=== PATIENT | female | born 1970 | race Caucasian/White ===

== ENCOUNTER 2018-01-01 18:27 | Emergency (ER) | payer OTHER, SELFPAY ==
[2018-01-01 18:27] VITALS: BP 116/68; PULSE 126; RESP 20; TEMP 37.4; O2SAT 97; BMI 23.6
[2018-01-01] MEDS: 0.9% Normal Saline 1,000 ML 999 ML IV (18:40)
[2018-01-01 18:44] VITALS: BP 125/78; PULSE 101; RESP 14; O2SAT 95
[2018-01-01 18:54] VITALS: TEMP 38.7
--- NOTE | 2018-01-01 19:26 | CT_ITS ---
STUDY: CT BRAIN WITHOUT CONTRAST REASON FOR EXAM: Female, 47 years old. Headache. Migraines. RADIATION DOSAGE (If Supplied By Facility): CTDIvol = ( 44.99 ) mGy, DLP = ( 779.24 ) mGycm TECHNIQUE: Transaxial CT imaging of the brain was performed without administration of intravenous contrast material. Individualized dose optimization techniques were used for this CT. COMPARISON: None. FINDINGS: Normal soft tissue structures. Normal calvarium. Normal size ventricles and extra-axial spaces for the patient's age. Normal white matter tracts of the cerebral hemispheres. Normal basal ganglia and thalami. Normal brainstem. Normal cerebellum. There is no intracranial hemorrhage. There are no findings of an acute ischemic infarction. Normal visualized paranasal sinuses. CT/Brain/Head without Contrast IMPRESSION: Normal unenhanced CT scan of the brain. Electronically Signed: Britt Cheney MD at 20:19 EDT Tel , Service support ,
[2018-01-01] MEDS: DiphenhydrAMINE 50 MG/ML Syringe 25 MG IV (19:34)
[2018-01-01] MEDS: Ketorolac 30 MG/ML Syringe IV (19:35)
[2018-01-01] MEDS: proCHLORPERazine 10 MG/2 ML Vial IV (19:37)
[2018-01-01 19:38] LABS: Absolute Lymphocyte Count 0.57 X10^3/ul (0.83-4.51); Absolute Neutrophil Count 10.2 X10^3/uL (2.0-7.7); Basophil# 0.02 X10^3/uL; Basophil% 0.2 % (0-1); Hematocrit 41.4 % (37-47); Hemoglobin 13.8 g/dl (12.0-15.0); Lymphocyte # 0.57 X10^3/ul (4.0); Lymphocyte % 4.9 % (19-41); Mean Corp Hgb Conc 33.3 g/gl (32-36); Mean Corpuscular Hgb 30.7 pg (27.0-32.0); Mean Corpuscular Volume 92.2 fL (81-99); Mean Platelet Vol. 9.5 fl (6.2-12.0); Monocyte% 7.7 % (0-10); Neutrophil # 10.23 X10^3/uL (2.7-7.7); Neutrophil % 87.1 % (47-70); Platelet Count 233 K/mm3 (150-450); RBC Distribution Width CV 13.6 % (11.6-14.6); Red Blood Count 4.49 M/mm3 (4.2-5.4); White Blood Count 11.7 K/mm3 (4.4-11.0)
[2018-01-01 19:39] LABS: Prothrombin Time (Protime)PT. 13.6 SECONDS (11.7-14.9)
[2018-01-01 19:42] VITALS: BP 140/91; PULSE 93; RESP 20; O2SAT 95
[2018-01-01 19:42] LABS: Differential Indicated SCAN CRITERIA MET; POSITIVE COUNT NO; POSITIVE DIFFERENTIAL YES; POSITIVE MORPHOLOGY NO
[2018-01-01 19:47] LABS: BUN 9 mg/dL (7-18); Creatinine, Serum 0.89 mg/dL (0.55-1.02); Estimated Creatinine Clearance 77.98 ml/min; Glucose 141 mg/dL (74-106)
[2018-01-01 19:48] LABS: Anion Gap 11 (5-15); BUN/Creat Ratio 10.1 RATIO (10-20); Calcium,Total 8.6 mg/dL (8.5-10.1); Chloride 103 mmol/L (98-107); EST Glomerular Filtration Rate 72 mL/min (>60); Est Glom Filt Rate - Afr Amer 87 mL/min (>60); Potassium 3.5 mmol/L (3.5-5.1); Sodium Level 136 mmol/L (136-145)
[2018-01-01 20:08] LABS: Differential Comment SCANNED
[2018-01-01 21:13] VITALS: BP 122/81; PULSE 89; RESP 19; O2SAT 95
--- NOTE | 2018-01-01 21:20 | ED.VISSUMM ---
- ER Visit Summary Date of Service: 01/01/18 Chief Complaint: Headache History of Present Illness: The patient is a 47 F who presents with a headache. She does have a history of headaches. She has a history of migraines. She states that her current headache worsened over the course of a couple of hours. This headache is typical in character of pain and location to previous headaches. It is not the worst headache she has had. However she is concerned because she had fever. Family reports that thermometer read 106 at home but they are not sure if this is accurate. She denies any URI-like illness such as congestion rhinorrhea sore throat. She denies chest pain shortness of breath nausea vomiting diarrhea. She denies any medical history. Physical Examination: Temperature 101.6, heart rate 101 Moist mucous membranes No focal or lateralizing neurological deficits normal strength normal sensation Neck is supple no meningismus no nuchal rigidity negative Kernig's and Brudzinski's signs Heart is regular rhythm slightly tachycardic Lungs are clear Test Results: Labs notable for white blood cell count of 11.7. Glucose of 141. INR normal. Rapid influenza negative. CT of the head is normal. Emergency Department Course and Treatment: Workup as above is unremarkable. I discussed with the patient and family at bedside that my clinical suspicion for bacterial meningitis is very low given her overall well appearance and lack of meningeal signs or nuchal rigidity. I did explain that viral meningitis is still a consideration but that there is usually no specific treatmen but would likely place the patient in observation. We had a long discussion regarding risks and benefits of lumbar puncture. Patient refused lumbar puncture. We discussed alternatives including monitoring at home. Family is able to watch her at home as well. They do understand to return for new or worsening symptoms and were instructed on specific signs and symptoms to monitor for. She was treated here with IV fluids Toradol Compazine and Benadryl with significant improvement of symptoms. She would like to go home. Patient discharged home in good condition. Treatment Plan: [] Disposition: Discharge Impression: Fever Headache This note was generated with [employer] dictation software. It may contain incorrect words, spelling, and punctuation that were not noted in review of the chart prior to signing ED Disposition - Plan for ED Patient: Chief Complaint: Fever Referrals: Lorenzo Rodriguez III, MD [Primary Care Provider] -
--- NOTE | 2018-01-01 21:23 | ED.DEP ---
ED Disposition - Plan for ED Patient: Chief Complaint: Fever Instructions: ED Cephalgia Unspecified Referrals: Lorenzo Rodriguez III, MD [Primary Care Provider] -
[2018-01-01 21:31] VITALS: BP 116/71; PULSE 89; RESP 18; O2SAT 96
== END 2018-01-01 21:32 | disposition home or self-care (01) ==
PROVIDERS: Emergency Provider Emergency Medicine; Family Provider Family Medicine; PCP Family Medicine
DX: R51 Headache (principal); R50.9 Fever, unspecified
CPT/HCPCS: 70450; 80048; 85025; 85610; 87804; 96361; 96374; 96375; 99284; J7030; A4216

== ENCOUNTER 2018-01-03 14:29 | Emergency (ER) | payer OTHER, SELFPAY ==
[2018-01-03 14:29] VITALS: BP 163/63; PULSE 107; RESP 20; TEMP 36.7; O2SAT 98; BMI 23.6
--- NOTE | 2018-01-03 15:02 | ED.VISSUMM ---
- ER Visit Summary Date of Service: 01/03/18 Chief Complaint: Headache and fever History of Present Illness: The patient is a [address] Lorenzo Rodriguez III. She reports that she has a headache and fever that began 3 days ago. She reports that the headache has come on gradually. States that it improves after Excedrin, but then returns. She states that she went to the chiropractor today and had a nerve zully in her neck. The headache is now a sharp throbbing pain over her temples and forehead. It is 9 out of 10 in severity. She does have a history of similar headaches. Patient reports that she has had a fever to 101.8?. She denies any sore throat or cough. No ear pain or congestion. No abdominal pain. She has been nauseated. However, this is not unusual with her headache. No vomiting or diarrhea. No dysuria frequency. Last menstrual period was 2 weeks ago. No rash. No numbness or weakness. Physical Examination: Vitals: Stable. Afebrile. General: Well-nourished and well-developed. Head: Normocephalic atraumatic. Neck: Supple, no lymphadenopathy. No JVD. Nontender. Cardiovascular: Regular rate and rhythm. No murmurs. Respiratory: No respiratory distress. Clear to auscultation bilaterally. Abdominal: Soft, nontender, nondistended, normal bowel sounds. No guarding, rebound, or peritoneal signs. Back: Nontender. Extremities: Nontender, no edema. Skin: Normal color, no rash. Neurologic: Alert and oriented ?3. Cranial nerves II through XII are intact. Normal strength and sensation. Psych: Normal affect. Test Results: Urinalysis shows leukocytes, blood, ketones, 2+ bacteria. No white or red blood cells. Patient denies dysuria. I do not believe this is the source of her fever. Emergency Department Course and Treatment: Patient had an IV placed. She was given a liter normal saline. She was given Benadryl, Reglan, Toradol, Depakote, and Solu-Medrol IV. Had a prolonged discussion with the patient and her about the differential of fever and headache. She has refused a lumbar puncture. Treatment Plan: Patient will be discharged symptomatic care. Push fluids. Alternate Tylenol and ibuprofen. She reports that she has an appointment with Dr. Lorenzo Rodriguez iii tomorrow. She is instructed to keep this appointment. Return to the emergency department for any worsening symptoms. Disposition: To home in improved and stable condition. Impression: 1. Cephalgia. 2. Fever, uncertain cause. This note was generated with [employer] dictation software. It may contain incorrect words, spelling, and punctuation that were not noted in review of the chart prior to signing ED Disposition - Plan for ED Patient: Chief Complaint: Fever Instructions: ED Fever Unconf Cause, ED Cephalgia Unspecified Referrals: Lorenzo Rodriguez III, MD [Primary Care Provider] -
[2018-01-03] MEDS: 0.9% Normal Saline 1,000 ML 999 ML IV (15:30)
[2018-01-03] MEDS: DiphenhydrAMINE 50 MG/ML Syringe IV (15:31)
[2018-01-03] MEDS: Ketorolac 30 MG/ML Syringe IV (15:31)
[2018-01-03] MEDS: Metoclopramide 10 MG/2 ML Vial IV (15:31)
[2018-01-03 16:29] VITALS: BP 147/80; PULSE 69; RESP 18; O2SAT 99
[2018-01-03] MEDS: Acetaminophen 500 MG Tablet 1000 MG PO (17:07)
[2018-01-03 17:48] LABS: Color, Urine Yellow (Yellow); Glucose, Dipstick Normal (Normal); Ketone-Dipstick 5 mg/dl (Negative); Leukocyte Esterase-Dipstick 25 /ul (Negative); Nitrite-Dipstick Negative (Negative); Occult Blood-Urine 250 /ul (Negative); Protein-Dipstick 100 mg/dl (Negative); Urine Bilirubin Dipstick Negative (Negative); Urine Clarity Clear (Clear); Urine Urobilinogen Normal (Normal); Urine pH 6.5 (5.0 - 8.0)
[2018-01-03 18:06] LABS: Bacteria 2+ /hpf (None Seen); Mucous, Urine 2+ /hpf (<or=2+); Red Blood Cells-Urine 0-5 SEEN /hpf (0-5); Squamous Epithelial Cells - UA 0-5 SEEN /hpf (5-10); White Blood Cells 0-5 SEEN /hpf (0-5)
[2018-01-03 18:58] VITALS: BP 117/89; PULSE 63; RESP 18; O2SAT 97
== END 2018-01-03 19:00 | disposition home or self-care (01) ==
PROVIDERS: Emergency Provider Emergency Medicine; Family Provider Family Medicine; PCP Family Medicine
DX: R51 Headache (principal); R50.9 Fever, unspecified
CPT/HCPCS: 81001; 96365; 96366; 96367; 96375; 99284; J7030; J7050; A4216; J2930

== ENCOUNTER 2021-04-29 15:06 | Outpatient (CLI) | payer OTHER, SELFPAY ==
[2021-04-29 16:05] LABS: Absolute Neutrophil Count 4.3 X10^3/uL (2.0-7.7); Basophil# 0.04 X10^3/uL; Basophil% 0.6 % (0-1); Eosinophil# 0.16 X10^3/uL; Eosinophils% 2.3 % (0-5); Lymphocyte % 27.3 % (19-41); Mean Corp Hgb Conc 33.3 g/dL (32-36); Mean Corpuscular Volume 93.1 fL (81-99); Mean Platelet Vol. 9.7 fl (6.2-12.0); Monocyte# 0.57 X10^3/uL; Monocyte% 8.2 % (0-10); NRBC Flagged by Analyzer 0 % (0-5); Neutrophil # 4.26 X10^3/uL (2.7-7.7); Neutrophil % 61.3 % (47-70); Platelet Count 311 K/mm3 (150-450); RBC Distribution Width CV 13.4 % (11.6-14.6); RBC Distribution Width SD 45.7 fl (35.1-43.9); Red Blood Count 4.51 M/mm3 (4.2-5.4)
[2021-04-29 16:33] LABS: AST(SGOT) 13 U/L (15-37); Alanine Aminotransfer ALT/SGPT 32 U/L (13-56); Albumin, Serum 3.8 g/dL (3.2-5.0); Alkaline Phosphatase 54 U/L (45-117); Anion Gap 9 (5-15); BUN 16 mg/dL (7-18); BUN/Creat Ratio 20.1 RATIO (10-20); Chloride 104 mmol/L (98-107); Cholesterol 272 mg/dL (200); EST Glomerular Filtration Rate 80 mL/min (>60); Est Glom Filt Rate - Afr Amer 97 mL/min (>60); Globulin 3.7 g/dL (2.2-4.2); Glucose 105 mg/dL (74-106); High Density Lipoprotein 60 mg/dL; Potassium 3.9 mmol/L (3.5-5.1); Protein, Total 7.5 g/dL (6.4-8.2); Sodium Level 141 mmol/L (136-145); Thyroid Stim Hormone (TSH) 0.94 uIU/mL (0.358-3.74); Triglycerides 335 mg/dL; Very Low Density Lipoprotein 67 mg/dL (5-40)
[2021-04-29 16:41] LABS: Vitamin D,25 Hydroxy 22.5 ng/mL
== END 2021-04-29 23:59 | disposition short-term general hospital (02) ==
LOC: POLAB3 15:07
PROVIDERS: PCP Family Medicine Geriatric Medicine; Visit Provider Family Medicine Geriatric Medicine
DX: E78.5 Hyperlipidemia, unspecified (principal); E55.9 Vitamin D deficiency, unspecified; R53.83 Other fatigue
CPT/HCPCS: 36415; 80053; 80061; 82306; 84443; 85025

== ENCOUNTER 2021-04-30 08:55 | Outpatient (CLI) | payer OTHER, SELFPAY | END 2021-04-30 23:59 | disposition short-term general hospital (02) | LOC: PSN 08:57 | PROVIDERS: PCP Family Medicine Geriatric Medicine; Referring Provider Family Medicine Geriatric Medicine; Visit Provider Family Medicine Geriatric Medicine | DX: R68.83 Chills (without fever) (principal) | CPT/HCPCS: 87635; 87804; 87807; U0003; U0005 ==

== ENCOUNTER 2021-06-09 07:03 | Outpatient (CLI) | payer OTHER, SELFPAY ==
--- NOTE | 2021-06-09 13:46 | PFT ---
INTRODUCTION: The patient is a 51-year-old female that presents for pulmonary function studies secondary to a diagnosis of shortness of breath. Respiratory therapy reported good patient effort. Bronchodilators were used during testing. INTERPRETATION: Forced expiration spirometry demonstrates no evidence of a large airways obstructive ventilatory defect. There was no significant response to aerosolized bronchodilators. Spirograms are of good quality and plateau normally. Body plethysmography was performed and reveals lung volumes to be within normal limits. Diffusing capacity by single breath CO is also within normal limits. IMPRESSION: Grossly normal pulmonary function studies.
== END 2021-06-09 23:59 | disposition home or self-care (01) ==
PROVIDERS: PCP Family Medicine Geriatric Medicine; Referring Provider Family Medicine Geriatric Medicine; Visit Provider Family Medicine Geriatric Medicine
DX: R06.02 Shortness of breath (principal)
CPT/HCPCS: 94060; 94726; 94729

== ENCOUNTER 2021-07-08 13:51 | Outpatient (CLI) | payer OTHER, SELFPAY ==
--- NOTE | 2021-07-08 13:56 | ECHOD_ITS ---
Reason For Study: SOB Procedure This was a 2D Doppler, Color Flow transthoracic echocardiogram. Exam performed in department. Left Ventricle Normal LV size. Left ventricular systolic function is normal. The estimated ejection fraction is 65 %. No evidence for diastolic dysfunction. No regional wall motion abnormalities noted. Right Ventricle Normal RV size. Normal systolic function. Atria Normal left atrium. Normal right atrium. No doppler evidence for ASD. Mitral Valve There is no mitral annular calcification. Normal mitral valve. Mild (1+) mitral valve insufficiency. Tricuspid Valve Normal tricuspid valve. Mild to moderate (1-2+) tricuspid valve insufficiency. Right ventricular systolic pressure estimated to be 31 mmHg. Aortic Valve Trisinus/trileaflet aortic valve. Mild diffuse aortic valve thickening. Pulmonic Valve The pulmonic valve is not well visualized. Mild (1+) pulmonic valve insufficiency. Great Vessels Normal sized aortic root. Pericardium/Pleural No pericardial effusion. MMode/2D Measurements & Calculations LVIDd: 4.2 cm IVSd: 1.00 cm Ao root diam: 3.3 cm LVIDs: 2.9 cm LVPWd: 0.99 cm RVDd: 4.1 cm FS: 30.3 % LAV(MOD-bp): 47.4 ml LVAd ap4: 33.1 cm2 SV(MOD-sp4): 71.9 ml LAV(MOD-bp) Indexed: 25.6 ml/m2 LVLd ap4: 8.3 cm LAV(MOD-sp2): 47.8 ml EDV(MOD-sp4): 106.1 ml LAV(MOD-sp4): 45.8 ml EDV(sp4-el): 111.9 ml LVAs ap4: 16.5 cm2 LVLs ap4: 6.6 cm ESV(MOD-sp4): 34.2 ml ESV(sp4-el): 35.4 ml EF(MOD-sp4): 67.8 % EF(sp4-el): 68.3 % SV(sp4-el): 76.5 ml LA A4 area: 17.8 cm2 LA dimension(2D): 3.5 cm RA A4 area: 15.4 cm2 Time Measurements MV dec time: 0.22 sec Doppler Measurements & Calculations MV E max denzel: 73.4 cm/sec Lat Peak E' Denzel: 12.9 cm/sec Med Peak E' Denzel: 7.9 cm/sec MV A max denzel: 95.0 cm/sec E/E' lat: 5.7 E/E' med: 9.3 MV E/A: 0.77 Ao V2 max: 168.6 cm/sec LV V1 max: 159.2 cm/sec PA V2 max: 90.9 cm/sec Ao max P.4 mmHg LV V1 max P.1 mmHg TR max denzel: 264.4 cm/sec TR max P.0 mmHg ECHO/Echo Complete Interpretation Summary Left ventricular systolic function is normal. The estimated ejection fraction is 65 %. Mild (1+) mitral valve insufficiency. Mild to moderate (1-2+) tricuspid valve insufficiency. Mild diffuse aortic valve thickening. Mild (1+) pulmonic valve insufficiency. Right ventricular systolic pressure estimated to be 31 mmHg. No evidence for diastolic dysfunction. Ordering Physician: Tye Espino Referring Physician: Tye Espino Chi Performed By: Marsha Swann, BILL
== END 2021-07-08 23:59 | disposition home or self-care (01) ==
LOC: CVS 13:54
PROVIDERS: PCP Family Medicine Geriatric Medicine; Referring Provider Family Medicine Geriatric Medicine; Visit Provider Family Medicine Geriatric Medicine
DX: R06.02 Shortness of breath (principal)
CPT/HCPCS: 93306

== ENCOUNTER → 2021-08-26 | Outpatient (CLI) | payer OTHER, SELFPAY ==
[2021-09-03 19:07] LABS: Lyme IgG P18 Ab Absent (.); Lyme IgG P23 Ab Absent (.); Lyme IgG P28 Ab Absent (.); Lyme IgG P30 Ab Absent (.); Lyme IgG P39 Ab Absent (.); Lyme IgG P41 Ab Absent (.); Lyme IgG P45 Ab Absent (.); Lyme IgG P58 Ab Absent (.); Lyme IgG P66 Ab Absent (.); Lyme IgG P93 Ab Absent (.); Lyme IgM P23 Ab Absent (.); Lyme IgM P39 Ab Absent (.); Lyme IgM P41 Ab Absent (.)
[2021-09-03 19:26] LABS: Lyme IgG WB Interpretation Negative (.); Lyme IgM WB Interpretation Negative (.)
== END | disposition home or self-care (01) ==
LOC: POLAB3 16:08
PROVIDERS: PCP Family Medicine Geriatric Medicine; Visit Provider Family Medicine Geriatric Medicine
DX: T63.481A Toxic effect of venom of other arthropod, accidental (unintentional), initial encounter (principal)
CPT/HCPCS: 36415; 86617

== ENCOUNTER → 2022-04-09 | Outpatient (CLI) | payer OTHER, SELFPAY | END | disposition home or self-care (01) | LOC: PSN 11:47 | PROVIDERS: PCP Family Medicine Geriatric Medicine; Referring Provider Family Medicine Geriatric Medicine; Visit Provider Family Medicine Geriatric Medicine | DX: R68.83 Chills (without fever) (principal) | CPT/HCPCS: 87635; 87804; 87807; C9803; U0003; U0005 ==

== ENCOUNTER 2022-06-25 15:45 | Outpatient (CLI) | payer OTHER, SELFPAY ==
[2022-06-25 17:40] LABS: Absolute Lymphocyte Count 1.81 X10^3/uL (0.83-4.51); Absolute Neutrophil Count 3.8 X10^3/uL (2.0-7.7); Basophil# 0.05 X10^3/uL; Basophil% 0.8 % (0-1); Eosinophil# 0.11 X10^3/uL; Eosinophils% 1.7 % (0-5); Hematocrit 41.5 % (37-47); Hemoglobin 13.6 g/dL (12.0-15.0); Lymphocyte # 1.81 X10^3/ul (0.83-4.51); Lymphocyte % 28.1 % (19-41); Mean Corp Hgb Conc 32.8 g/dL (32-36); Mean Corpuscular Hgb 30.6 pg (27.0-32.0); Mean Corpuscular Volume 93.5 fL (81-99); Mean Platelet Vol. 9.6 fl (6.2-12.0); Monocyte# 0.62 X10^3/uL; Monocyte% 9.6 % (0-10); NRBC Flagged by Analyzer 0 % (0-5); Neutrophil # 3.83 X10^3/uL (2.7-7.7); Neutrophil % 59.6 % (47-70); Platelet Count 334 K/mm3 (150-450); RBC Distribution Width CV 13.7 % (11.6-14.6); Red Blood Count 4.44 M/mm3 (4.2-5.4); White Blood Count 6.4 K/mm3 (4.4-11.0)
[2022-06-25 18:27] LABS: ALB/GLOB Ratio 1.1 RATIO (0.9-2.4); AST(SGOT) 15 U/L (15-37); Alanine Aminotransfer ALT/SGPT 23 U/L (13-56); Albumin, Serum 3.7 g/dL (3.2-5.0); Alkaline Phosphatase 50 U/L (45-117); Anion Gap 7 (5-15); BUN 16 mg/dL (7-18); BUN/Creat Ratio 23.2 RATIO (10-20); Calcium,Total 9.1 mg/dL (8.5-10.1); Chloride 103 mmol/L (98-107); Creatinine, Serum 0.69 mg/dL (0.55-1.02); EST Glomerular Filtration Rate 95 mL/min (>60); Est Glom Filt Rate - Afr Amer 115 mL/min (>60); Globulin 3.4 g/dL (2.2-4.2); Glucose 112 mg/dL (74-106); Potassium 4.1 mmol/L (3.5-5.1); Protein, Total 7.1 g/dL (6.4-8.2); Sodium Level 137 mmol/L (136-145); Thyroid Stim Hormone (TSH) 1.28 uIU/mL (0.358-3.74)
== END 2022-06-25 23:59 | disposition home or self-care (01) ==
PROVIDERS: PCP Family Medicine Geriatric Medicine; Visit Provider Family Medicine Geriatric Medicine
DX: Z00.00 Encounter for general adult medical examination without abnormal findings (principal)
CPT/HCPCS: 36415; 80053; 84443; 85025

== ENCOUNTER → 2022-07-28 | Outpatient (CLI) | payer OTHER, SELFPAY | END | disposition home or self-care (01) | LOC: PSN 12:28 | PROVIDERS: PCP Family Medicine Geriatric Medicine; Referring Provider Family Medicine Geriatric Medicine; Visit Provider Family Medicine Geriatric Medicine | DX: R68.83 Chills (without fever) (principal) | CPT/HCPCS: 87635; 87804; 87807; U0003; U0005 ==

== ENCOUNTER → 2022-09-05 | Outpatient (CLI) | payer OTHER, SELFPAY ==
--- NOTE | 2022-09-05 08:56 | CT_ITS ---
STUDY: CT MAXILLOFACIAL SINUSES REASON FOR EXAM: Female, 52 years old. CHRONIC SINUSITIS RADIATION DOSAGE (If Supplied By Facility): CTDIvol = ( 33.06 ) mGy, DLP = ( 821.45 ) mGycm TECHNIQUE: The patient was scanned in a multi detector CT scanner. High resolution axial imaging was performed without the administration of intravenous contrast material. Sagittal and coronal images were reconstructed. Individualized dose optimization techniques were used for this CT. COMPARISON: None. FINDINGS: FRONTAL SINUSES: Normal aeration, without mucosal inflammatory disease. ETHMOIDAL SINUSES: Normal aeration, without mucosal inflammatory disease. MAXILLARY SINUSES: Mild mucosal thickening in the floor of the right maxillary sinus. 2.5 cm lobulated mucus retention cyst in the floor of the left maxillary sinus. SPHENOIDAL SINUSES: Normal aeration, without mucosal inflammatory disease. There is patency of the bilateral maxillary infundibuli with normal uncinate processes, ethmoid bullae, and hiatus semilunaris. Normal bilateral middle turbinates. Normal bilateral inferior turbinates. Normal midline nasal septum. There is patency of the bilateral nasal airways. The visualized osseous structures are normal. The visualized bilateral orbital contents are normal. CT/Sinus/Facial Bone IMPRESSION: No evidence for acute sinusitis. Mild mucosal thickening in the floor of the right maxillary sinus. Mucus retention cyst in the left maxillary sinus. Electronically Signed: Radu Díaz MD at 22:53 EDT ,
== END | disposition home or self-care (01) ==
LOC: CT 08:52
PROVIDERS: PCP Family Medicine Geriatric Medicine; Visit Provider Otolaryngology
DX: J32.8 Other chronic sinusitis (principal)
CPT/HCPCS: 70486

== ENCOUNTER → 2023-01-18 | Outpatient (CLI) | payer OTHER, SELFPAY | END | disposition home or self-care (01) | LOC: PSN 08:04 | PROVIDERS: PCP Family Medicine Geriatric Medicine; Referring Provider Family Medicine Geriatric Medicine; Visit Provider Family Medicine Geriatric Medicine | DX: R68.83 Chills (without fever) (principal) | CPT/HCPCS: 87635; 87804; 87807; C9803 ==

== ENCOUNTER → 2023-07-13 | Outpatient (CLI) | payer OTHER, SELFPAY ==
[2023-07-13 14:55] LABS: Absolute Lymphocyte Count 1.12 X10^3/uL (0.83-4.51); Basophil# 0.07 X10^3/uL; Basophil% 1.1 % (0-1); Eosinophil# 0.14 X10^3/uL; Eosinophils% 2.2 % (0-5); Hematocrit 44.8 % (37-47); Hemoglobin 14.7 g/dL (12.0-15.0); Lymphocyte # 1.12 X10^3/ul (0.83-4.51); Lymphocyte % 17.9 % (19-41); Mean Corp Hgb Conc 32.8 g/dL (32-36); Mean Corpuscular Hgb 30.5 pg (27.0-32.0); Mean Corpuscular Volume 92.9 fL (81-99); Mean Platelet Vol. 9.8 fl (6.2-12.0); Monocyte# 0.85 X10^3/uL; Monocyte% 13.6 % (0-10); NRBC Flagged by Analyzer 0 % (0-5); Neutrophil # 4.04 X10^3/uL (2.7-7.7); Neutrophil % 64.9 % (47-70); Platelet Count 294 K/mm3 (150-450); RBC Distribution Width CV 13.9 % (11.6-14.6); RBC Distribution Width SD 47.3 fl (35.1-43.9); Red Blood Count 4.82 M/mm3 (4.2-5.4); White Blood Count 6.2 K/mm3 (4.4-11.0)
[2023-07-13 15:18] LABS: ALB/GLOB Ratio 1.1 RATIO (0.9-2.4); AST(SGOT) 20 U/L (15-37); Alanine Aminotransfer ALT/SGPT 33 U/L (13-56); Albumin, Serum 3.5 g/dL (3.2-5.0); Alkaline Phosphatase 50 U/L (45-117); Anion Gap 9 (5-15); BUN 16 mg/dL (7-18); BUN/Creat Ratio 21.9 RATIO (10-20); Calcium,Total 9.2 mg/dL (8.5-10.1); Chloride 106 mmol/L (98-107); Cholesterol 201 mg/dL (200); Creatinine, Serum 0.73 mg/dL (0.55-1.02); EST Glomerular Filtration Rate 88 mL/min (>60); Est Glom Filt Rate - Afr Amer 107 mL/min (>60); Globulin 3.2 g/dL (2.2-4.2); Glucose 97 mg/dL (74-106); High Density Lipoprotein 48 mg/dL; Potassium 3.7 mmol/L (3.5-5.1); Protein, Total 6.7 g/dL (6.4-8.2); Sodium Level 141 mmol/L (136-145); Thyroid Stim Hormone (TSH) 0.89 uIU/mL (0.358-3.74); Triglycerides 466 mg/dL
== END | disposition home or self-care (01) ==
LOC: POLAB3 13:46
PROVIDERS: PCP Family Medicine Geriatric Medicine; Visit Provider Family Medicine Geriatric Medicine
DX: R53.83 Other fatigue (principal); E78.5 Hyperlipidemia, unspecified
CPT/HCPCS: 36415; 80053; 80061; 84443; 85025

== ENCOUNTER → 2023-08-11 | Outpatient (CLI) | payer OTHER, SELFPAY | END | disposition home or self-care (01) | LOC: PSN 08:08 | PROVIDERS: PCP Family Medicine Geriatric Medicine; Referring Provider Family Medicine Geriatric Medicine; Visit Provider Family Medicine Geriatric Medicine | DX: R68.83 Chills (without fever) (principal) | CPT/HCPCS: 87631 ==

== ENCOUNTER → 2023-10-08 | Outpatient (CLI) | payer OTHER, SELFPAY ==
--- NOTE | 2023-10-08 06:45 | MRI_ITS ---
STUDY: MRI RIGHT HAND REASON FOR EXAM: Female, 53 years old. FLEXOR TENDON RUPTURE OF HAND TECHNIQUE: Standardized fat and water weighted pulse sequences were obtained in all 3 orthogonal planes. COMPARISON: None. FINDINGS: Normal flexor tendons, without tear or tenosynovitis. Normal visualized annular jesika system. Normal volar plates. Normal extensor tendons, without tendon tear, subluxation or tenosynovitis. Normal sagittal bands and dorsal expansion (vasquez). There are small cysts/erosions in the third and fifth metacarpal heads. There is a small second MCP joint effusion. Normal interphalangeal joint of the thumb and second through fifth PIP joints without degenerative change, synovitis, periarticular inflammation or marginal erosions. Normal second through fifth DIP joints without degenerative change, synovitis, periarticular inflammation or marginal erosions. Normal marrow within the metacarpals and visualized phalanges without reactive edema, fracture or subluxation. Normal muscle groups of the thenar and hypothenar eminences. Normal lumbricalis and interosseous muscles. There are no soft tissue masses, edema or atrophy. Normal subcutis adipose space. MRI/Upper Ext/No Jt/ wo IMPRESSION: Small cysts/erosions in the third and fifth metacarpal heads. Small second MCP joint effusion. Intact flexor tendons. Electronically Signed: Ian Jackman MD at 10:26 EDT ,
== END | disposition home or self-care (01) ==
PROVIDERS: PCP Family Medicine Geriatric Medicine; Referring Provider Family Medicine Geriatric Medicine; Visit Provider Family Medicine Geriatric Medicine
DX: S66.819A Strain of other specified muscles, fascia and tendons at wrist and hand level, unspecified hand, initial encounter (principal); X58.XXXA Exposure to other specified factors, initial encounter
CPT/HCPCS: 73218

== ENCOUNTER → 2023-11-23 | Outpatient (CLI) | payer OTHER, SELFPAY | END | disposition home or self-care (01) | LOC: POLAB3 16:56 | PROVIDERS: PCP Family Medicine Geriatric Medicine; Visit Provider Family Medicine Geriatric Medicine | DX: R68.83 Chills (without fever) (principal) | CPT/HCPCS: 87631 ==

== ENCOUNTER → 2024-07-20 | Outpatient (CLI) | payer OTHER, SELFPAY ==
[2024-07-20 17:37] LABS: Absolute Lymphocyte Count 1.96 X10^3/uL (0.83-4.51); Absolute Neutrophil Count 4.7 X10^3/uL (2.0-7.7); Basophil# 0.08 X10^3/uL; Eosinophil# 0.19 X10^3/uL; Eosinophils% 2.5 % (0-5); Hematocrit 43.3 % (37-47); Hemoglobin 14.5 g/dL (12.0-15.0); Lymphocyte # 1.96 X10^3/ul (0.83-4.51); Lymphocyte % 25.3 % (19-41); Mean Corp Hgb Conc 33.5 g/dL (32-36); Mean Corpuscular Hgb 30.9 pg (27.0-32.0); Mean Corpuscular Volume 92.3 fL (81-99); Mean Platelet Vol. 9.1 fl (6.2-12.0); Monocyte# 0.75 X10^3/uL; Monocyte% 9.7 % (0-10); NRBC Flagged by Analyzer 0 % (0-5); Neutrophil # 4.73 X10^3/uL (2.7-7.7); Neutrophil % 61.1 % (47-70); Platelet Count 343 K/mm3 (150-450); RBC Distribution Width CV 13.8 % (11.6-14.6); RBC Distribution Width SD 46.5 fl (35.1-43.9); Red Blood Count 4.69 M/mm3 (4.2-5.4); White Blood Count 7.7 K/mm3 (4.4-11.0)
[2024-07-20 18:36] LABS: ALB/GLOB Ratio 1.6 RATIO (0.9-2.4); AST(SGOT) 15 U/L (<=31); Alanine Aminotransfer ALT/SGPT 15 U/L (<=34); Albumin, Serum 4.3 g/dL (3.5-5.0); Alkaline Phosphatase 50 U/L (35-104); Anion Gap 11 (5-15); BUN 12 mg/dL (4-19); Calcium,Total 9.8 mg/dL (7.6-11.0); Carbon Dioxide 24.3 mmol/L (21.0-32.0); Chloride 103 mmol/L (98-108); Cholesterol 191 mg/dL (<=200); Creatinine, Serum 0.73 mg/dL (0.70-1.20); EST Glomerular Filtration Rate 97 (>60); Globulin 2.6 g/dL (2.2-4.2); Glucose 92 mg/dL (70-99); High Density Lipoprotein 62 mg/dL; Low Density Lipoprotein Calc. 99 mg/dL; Potassium 3.9 mmol/L (3.3-5.1); Protein, Total 6.9 g/dL (5.9-8.4); Sodium Level 138 mmol/L (133-145); Total Bilirubin 0.48 mg/dL (0.00-1.30); Triglycerides 154 mg/dL; Very Low Density Lipoprotein 31 mg/dL (5-40)
== END | disposition home or self-care (01) ==
LOC: LAB 17:17
PROVIDERS: PCP Family Medicine Geriatric Medicine; Referring Provider Family Medicine Geriatric Medicine; Visit Provider Family Medicine Geriatric Medicine
DX: R53.83 Other fatigue (principal)
CPT/HCPCS: 36415; 80053; 80061; 84443; 85025